=== PATIENT | male | born 1950 | race Caucasian/White ===

== ENCOUNTER 2020-09-10 11:57 | Outpatient (CLI) | payer MEDICARE ==
--- NOTE | 2020-09-10 12:11 | RAD ---
EXAM: Chest PA and lateral: HISTORY: Shortness of breath COMPARISON: None FINDINGS: Sternotomy wires are noted. Heart: Normal cardiac silhouette Aorta: Unremarkable Pulmonary vessels: Normal Costophrenic angles: Costophrenic angles are clear. Lungs: Chronic changes. Hyperinflation. Irregular opacity in the right upper lobe, incompletely evalu ated. Possible 1.1 cm nodule in the right lower lobe. Pneumothorax: No pneumothorax Osseous structures: No osseous abnormalities IMPRESSION: 1. COPD. Hyperinflation. 2. Irregular opacity in the right upper lobe. Better interrogation with CT is recommended to exclude a possible malignant lesion, measuring 1.8 cm. Possible second 1.1 cm nodule in the right lower lobe. CODE T Code lung nodule
== END 2020-09-10 11:58 | disposition home or self-care (01) ==
LOC: MADLAB 11:57
DX: R06.02 Shortness of breath (principal); J44.9 Chronic obstructive pulmonary disease, unspecified; R91.8 Other nonspecific abnormal finding of lung field
CPT/HCPCS: 71046

== ENCOUNTER 2020-10-28 10:49 | Outpatient (CLI) | payer MEDICARE ==
--- NOTE | 2020-10-28 11:15 | RAD ---
PA AND LATERAL CHEST: Date: 10/28/2020 HISTORY: COVID-positive 2 months ago, follow-up. COMPARISON: 09/10/2020 study. FINDINGS: The right upper lobe parenchymal changes have shown continued improvement with some minimal residual scarring present. Nodular area in the right lung base is difficult to perceive on today's study. IMPRESSION: Some minimal residual linear scarring in the right upper lobe. POS: [facility]
== END 2020-10-28 10:50 | disposition home or self-care (01) ==
LOC: MADRAD 10:49
DX: U07.1 COVID-19 (principal); J98.4 Other disorders of lung
CPT/HCPCS: 71046

== ENCOUNTER 2022-07-11 10:05 | Emergency (ER) | payer MEDICARE | END 2022-07-11 11:45 | disposition home or self-care (01) | LOC: MADERS 10:05 | DX: I10 Essential (primary) hypertension (principal); R29.700 NIHSS score 0; Z79.899 Other long term (current) drug therapy | CPT/HCPCS: 70450; 93005 ==

== ENCOUNTER 2022-08-29 08:19 | Emergency (ER) | payer MEDICARE ==
[2022-08-29 09:23] LABS: Bilirubin Negative (Negative); Blood, Urine Moderate (Negative); Clarity Clear (Clear); Glucose, Urine (Dipstick) Negative (Negative); Ketone, Urine Negative (Negative); Leukocyte Negative (Negative); Nitrite Negative (Negative); Protein, Urine (Dipstick) Negative (Neg-Trace); Specific Gravity, Urine 1.025 (1.005-1.030); Urobilinogen 0.2 mg/dL (Less than 2)
[2022-08-29 09:30] LABS: Bacteria/HPF Rare-Few HPF (None Seen); Mucous/LPF Few LPF (<2+); RBC/HPF 21-50 HPF (0-3); Squamous Epithelial 0-3 HPF (0-3); WBC/HPF 0-3 HPF (0-3)
[2022-08-29 09:37] LABS: Anion Gap 12 mmol/L (10-20); BUN (Urea Nitrogen) 22 mg/dL (8.4-25.7); Calc. Creatinine Clearance 0 mL/min (70-130); Calcium 8.8 mg/dL (7.8-10.44); Carbon Dioxide 25 mmol/L (23-31); Chloride 106 mmol/L (98-107); Estimated GFR 83; Glucose 104 mg/dL (83-110); Potassium 4.5 mmol/L (3.5-5.1); Sodium 138 mmol/L (136-145)
== END 2022-08-29 10:39 | disposition home or self-care (01) ==
LOC: MADERS 08:19
DX: N40.1 Benign prostatic hyperplasia with lower urinary tract symptoms (principal); R33.8 Other retention of urine; I10 Essential (primary) hypertension; Z79.899 Other long term (current) drug therapy
CPT/HCPCS: 36415; 51702; 80048; 81003; 81015

== ENCOUNTER 2025-07-23 11:12 | Outpatient (CLI) | payer OTHER ==
[2025-07-23 11:32] LABS: Glucose, Urine (Dipstick) Negative (Negative); Leukocyte Negative (Negative); Protein, Urine (Dipstick) Trace mg/dL (Neg-Trace); Specific Gravity, Urine Greater/Equal 1.030 (1.005-1.030)
[2025-07-23 11:43] LABS: Anion Gap 14 mmol/L (10-20); BUN (Urea Nitrogen) 22 mg/dL (8.4-25.7); Calc. Creatinine Clearance 0 mL/min (70-130); Calcium 8.9 mg/dL (7.8-10.44); Carbon Dioxide 24 mmol/L (23-31); Chloride 108 mmol/L (98-107); Glucose 80 mg/dL (83-110); Potassium 4.1 mmol/L (3.5-5.1); Sodium 142 mmol/L (136-145)
[2025-07-23 12:09] LABS: Bacteria/HPF Rare-Few HPF (None Seen); RBC/HPF 0-3 HPF (0-3); WBC/HPF 0-3 HPF (0-3)
== END 2025-07-23 11:13 | disposition home or self-care (01) ==
LOC: MADLAB 11:12
PROVIDERS: ATTEND Urology
DX: N40.1 Benign prostatic hyperplasia with lower urinary tract symptoms (principal)
CPT/HCPCS: 36415; 80048; 81001; 87086

== ENCOUNTER 2025-08-13 09:04 | Outpatient (CLI) | payer OTHER ==
[~2025-08-13 09:04] MED LIST: Iopamidol 370 76% 100 ML VIAL ONE
[2025-08-13 09:28] LABS: Calc. Creatinine Clearance 0.0 mL/min (70-130)
== END 2025-08-13 09:05 | disposition home or self-care (01) ==
LOC: MADRAD 09:04
PROVIDERS: ATTEND Nurse Practitioner Family
DX: N28.1 Cyst of kidney, acquired (principal); N20.0 Calculus of kidney; R31.29 Other microscopic hematuria
CPT/HCPCS: 36415; 74178; 82565; Q9967